=== PATIENT | female | born 1975 | race Caucasian/White ===

== ENCOUNTER 2022-10-04 07:13 | Emergency (ER) | payer BC, SELFPAY ==
[2022-10-04 07:23] VITALS: BP 131/88; PULSE 63; RESP 18; TEMP 36.7; O2SAT 96; BMI 24.9
--- NOTE | 2022-10-04 08:03 | ED_ITS ---
HPI - General Adult General Chief complaint: Animal Bite Stated complaint: bitten by puppy in face Time Seen by Provider: 10/04/22 07:58 Source: patient Mode of arrival: ambulatory Limitations: no limitations History of Present Illness HPI narrative: Otherwise healthy 47-year-old female presents to the emergency department 30 minutes after she was playfully bit by her new puppy on her upper lip. Puppy was excited, rough housing when it lunged forward, biting at patient's mouth area, causing 2 lacerations to the upper lip. Both are through the vermilion borders. Puppy is 14 weeks, raised by reputable breeder. He is not exhibiting any aggressive or abnormal behaviors and is actually scheduled to get his rabies shot today. He can easily be observed. We discussed the risks and benefits and patient agrees that she does not need to start the rabies vaccine series She is actually already on Ceclor for a small skin infection on her leg. She does not take anticoagulants or immunosuppressants. She denies any inner dental injury. She states that her past medical history is benign, she does have a few allergies. Nonsmoker. It is ROS is negative for other generalized, HEENT, skin or musculoskeletal c hanges Related Data Home Medications Medication Instructions Recorded Confirmed cefadroxil 500 mg capsule 500 mg PO BID 10/04/22 10/04/22 gabapentin 100 mg capsule mg PO 10/04/22 prednisone 20 mg tablet 40 mg PO DAILY 10/04/22 10/04/22 trazodone 50 mg tablet mg PO 10/04/22 Allergies Allergy/AdvReac Type Severity Reaction Status Date / Time bee venom protein (honey bee) Allergy Verified 10/04/22 07:23 latex Allergy Verified 10/04/22 07:23 Sulfa (Sulfonamide Allergy Verified 10/04/22 07:23 Antibiotics) contrast Allergy Uncoded 10/04/22 07:23 Exam Const: Vital Signs, click to edit/add: Vital Signs - 24 hr 10/04/22 07:23 Temperature 98.0 F Pulse Rate [Left P ulse Oximeter] 63 Respiratory Rate 18 Blood Pressure [Le ft Upper Arm] 131/88 Pulse Oximetry 96 Oxygen Delivery Me thod Room Air Documenting provider has reviewed patient's vital signs: yes Common normals: no apparent distress General appearance: cooperative, comfortable and well kempt HENMT: Common normals: normocephalic and head/scalp atraumatic Head and scalp: normocephalic and atraumatic Other: Facial bones appear intact with no bruising or swelling. Nose appears normal. Oropharynx normal in appearance, tongue normal as is dentition. There is in question are 2 lacerations 1 on the right lateral upper lip does cross through the vermilion border but is very superficial and does not gape at all is very hemostatic and is only about 8 mm long total. It is perfectly straight and does not deformed with talking, smiling, mouth movement. There is no tension on that part of the wound. The more concerning lesion is 1.2 cm, to the left of the nasal labial frenulum on the upper left lip. This 1 does gape about 2-3 mm with mouth movement and crosses through the vermilion border. It is hemostatic. Eye: Common normals: conjunctivae normal General eye: normal appearance of both eyes Conjunctiva: conjunctiva(e) normal Resp: Common normals: normal respiratory effort Effort & inspection: able to speak in complete sentences Psych: Common normals: mental status grossly normal, cooperative and affect normal Appearance: well kempt Insight: insight good Judgement: judgment good Skin: Narrative: No other areas identified in exposed skin Course Course Hospital Course: Counseled patient that even though the lesions would not necessarily require stitches on another part of the body, because they go through the vermilion border, they are much higher risk for poor cosmetic outcome. The lateral right lesion will not benefit from suture or intervention in any way but did the lesion on the left certainly will especially since it gait at an angle as she moves her mouth. She was agreeable to stitches. Procedure: Suture of lip: Area was cleansed with alcohol wipe and injected with a 0.5 mL of 1% lidocaine without epinephrine with good anesthesia. It was then wiped again with alcohol wipe and 2 simple interrupted 6-0 Monocryl sutures were placed, 1 just above and 1 just below the vermilion border with excellent hemostasis and cosmetic closure. The vermilion border does appear to line up perfectly with this intervention and no longer gapes with mouth movement. There was still about 6 mm below the bottom stitch completely on the lower lip area th at will not benefit from suture. She was counseled regarding this. Patient was then instructed on wound care, keep both lesions liver early covered with Vaseline. Make an appointment to have the stitches removed in 4-5 days. Bring the paperwork with her so that they can see how small the suture is and that there are 2 knots that would need to be removed. Vital Signs Vital signs: Initial Vital Signs Temperature 98.0 F 10/04/22 07:23 Temperature Source Temporal Artery Scan 10/04/22 07:23 Pulse Rate 63 10/04/22 07:23 Pulse Rhythm Regular 10/04/22 07:23 Respiratory Rate 18 10/04/22 07:23 Blood Pressure 131/88 10/04/22 07:23 Blood Pressure Mean 102 10/04/22 07:23 Blood Pressure Position Sitting 10/04/22 07:23 Pulse Oximetry 96 10/04/22 07:23 Oxygen Delivery Method Room Air 10/04/22 07:23 Vital Signs Temperature 98.0 F 10/04/22 07:23 Pulse Rate 63 10/04/22 07:23 Respiratory Rate 18 10/04/22 07:23 Blood Pressure 131/88 10/04/22 07:23 Pulse Oximetry 96 10/04/22 07:23 Oxygen Delivery Method Room Air 10/04/22 07:23 Temperature 98.0 F 10/04/22 07:23 Pulse Rate 63 10/04/22 07:23 Respiratory Rate 18 10/04/22 07:23 Blood Pressure 131/88 10/04/22 07:23 Pulse Oximetry 96 10/04/22 07:23 Oxygen Delivery Method Room Air 10/04/22 07:23 Medical Decision Making MDM Narrative Medical decision making narrative: Differential diagnosis including skin laceration, oral laceration, animal bite, dental injury, rabies exposure. Risks and benefits of each diagnosis weighed with patient. Discharge Plan Discharge Clinical Impression: Laceration of lip without complication Patient Disposition: Home, Self-Care Condition: Improved Instructions: Laceration (DC) Additional Instructions: As we discussed, this cut is at very low risk of infection. The portion that is on lower part of the lip, closer to the mouth opening does not need any special attention. Two stitches were placed near the vermilion border, the junction between the lip and the skin. As we discussed, if this does not heal perfectly straight it can lead to a less ideal cosmetic appearance. I placed #2 6-0 simple interrupted stitches that will need to be removed. The small stitches tend to be removed much sooner than other stitches on other parts of the body. Ideally I would like these removed in 4-5 days. It will be difficult to find a place to have this done over the weekend, so Sunday is fine. Please call for an appointment right away. I would prefer that they not stay in longer than 7 days. You do not need special antibiotics for this, but you may continue the ones that you are already taking for your leg. The prednisone will not affect the healing of this wound. Please liver early apply Vaseline to both the area with stitches and the other small cut. This will help things heal cosmetically and reduce tenderness. It is okay to take Tylenol and ibuprofen as needed for pain. If there is any severe swelling, bleeding or other abnormality, come back to the emergency department. Activity Level: No Restrictions Discharge Diet: Regular Prescriptions: No Action trazodone 50 mg tablet PO prednisone 20 mg tablet 40 mg PO DAILY cefadroxil 500 mg capsule 500 mg PO BID gabapentin 100 mg capsule PO Stand Alone Forms: [employer] Info Instructions
== END 2022-10-04 08:14 | disposition home or self-care (01) ==
LOC: ED 08:07
PROVIDERS: Emergency Provider Family Medicine; PCP Physician Assistant
DX: S01.551A Open bite of lip, initial encounter (principal); W54.0XXA Bitten by dog, initial encounter
CPT/HCPCS: 12011; 99282; 99283